=== PATIENT | female | born 1995 | race Hispanic/Latino ===

== ENCOUNTER 2018-07-26 13:32 | Emergency (ER) | payer OTHER ==
[~2018-07-26] VITALS: Ht 154.9 cm; Wt 71.4 kg
[2018-07-26 13:33] VITALS: BP 137/84
[2018-07-26] MEDS ORDERED: CRYS28TA PO (13:38)
--- NOTE | 2018-07-26 14:32 | REP ---
Right foot four views : There is no fracture or dislocation. Mineralization and joint spaces are normal. There are no calcifications or foreign bodies. Impression: Negative right foot . Electronically Signed by Idris Stein MD 07/26/2018 02:24 P
== END 2018-07-26 14:35 | disposition home or self-care (01) ==
LOC: M ED 13:32
DX: S91.204A Unspecified open wound of right lesser toe(s) with damage to nail, initial encounter (principal); S70.01XA Contusion of right hip, initial encounter; W19.XXXA Unspecified fall, initial encounter; Y92.009 Unspecified place in unspecified non-institutional (private) residence as the place of occurrence of the external cause; Z79.3 Long term (current) use of hormonal contraceptives

== ENCOUNTER → 2018-07-31 | Outpatient (REF) | payer OTHER ==
[~2018-07-31] MED LIST: CRYS28TA PO
== END ==
LOC: M LAB REF 13:50
PROVIDERS: ATTEND Internal Medicine Endocrinology, Diabetes & Metabolism
DX: E04.1 Nontoxic single thyroid nodule (principal)